=== PATIENT | male | born 1990 | race Caucasian/White ===

== ENCOUNTER 2017-12-26 17:55 | Emergency (ER) | payer SELFPAY ==
[~2017-12-26] VITALS: Ht 165.1 cm; Wt 90.9 kg
[2017-12-26 17:56] VITALS: BP 130/78
[2017-12-26] MEDS: IBUPROFEN 800 MG TABLET PO ONE (21:18)
== END 2017-12-26 21:41 | disposition home or self-care (01) ==
LOC: EMS 17:56
DX: R07.1 Chest pain on breathing (principal); F17.210 Nicotine dependence, cigarettes, uncomplicated
CPT/HCPCS: 93005; 99284